=== PATIENT | female | born 1970 | race Caucasian/White ===

== ENCOUNTER → 2025-04-22 11:45 | Outpatient (CLI) | payer OTHER, SELFPAY ==
--- NOTE | 2025-04-22 11:51 | DI.CT.S_ITS ---
PROCEDURE: CT THORACIC SPINE WO CON INDICATIONS: T-PAIN TECHNIQUE: Noncontrast 3 mm thick sections acquired through the region of interest in the thoracic spine. Sagittal and coronal reformats were then constructed. For radiation dose reduction, the following was used: automated exposure control. COMPARISON: None. FINDINGS: Image quality: Excellent. Bones: There is normal overall bony alignment. No acute vertebral body compression fractures. No suspicious sclerotic or lytic bony lesions. Central spinal canal is of normal overall caliber. ACDF of the upper cervical spine, partially visualized. [id number] degenerative disc disease, most prominent at T5-6, with opposing endplate sclerosis. Soft tissues: No paravertebral masses or hematomas. Visualized posteromedial lungs appear clear. 2 centimeter left adrenal nodule with indeterminate attenuation (32 Hounsfield unit). IMPRESSION: Goxw-uq-htexhakj multilevel degenerative disc disease, most prominent at T5-6. Indeterminate left adrenal nodule. Recommend dedicated CT or MRI for characterization (adrenal mass protocol). Dictated by: Indra Dobbins M.D. on 04/23/2025 at 16:32 Approved by: Indra Dobbins M.D. on 04/23/2025 at 16:33
== END ==
PROVIDERS: Family Provider Nurse Practitioner Family; PCP Nurse Practitioner Family; Referring Provider Orthopaedic Surgery Orthopaedic Surgery of the Spine; Visit Provider Orthopaedic Surgery Orthopaedic Surgery of the Spine
DX: M51.34 Other intervertebral disc degeneration, thoracic region (principal); S22.058 Other fracture of T5-T6 vertebra; E27.9 Disorder of adrenal gland, unspecified; Z98.1 Arthrodesis status
CPT/HCPCS: 72128